=== PATIENT | female | born 1955 | race Caucasian/White ===

== ENCOUNTER → 2016-11-20 | Outpatient (CLI) | payer OTHER ==
[2016-11-20 14:15] VITALS: BP 127/68; PULSE 60; TEMP 97.9
--- NOTE | 2016-11-20 14:39 | P.HPBAR ---
Bariatric H&P - History & Physicial H&P Date: 11/20/16 History & Physicial: Visit/CC: Patient initial contact: Initial weight: 87.203 kg Initial weight in pounds: 192.25 Height: 5 ft 6 in Initial BMI: Last weight: Current weight: 87.317 kg Current weight in pounds: Current BMI: [place] body weight (based on NIH guidelines): Excess body weight loss: The patient is a 61 year-old F who presents for Bariatric Assessment. Patient is hungry and wishes of her LAP-BAND adjusted. Review of Systems Constitutional: Reports as per HPI Past Medical History History of Any Multi-Drug Resistant Organisms: None Reported Past Surgical History: Bariatric Surgery, Section, Tubal Ligation Additional Past Surgical History / Comment(s): lap band, D and C, trigger finger surgery, carpal tunnel, bilateral knee surgery Past Anesthesia/Blood Transfusion Reactions: No Reported Reaction Past Psychological History: No Psychological Hx Reported Smoking Status: Unknown if ever smoked Past Alcohol Use History: None Reported Past Drug Use History: None Reported - Past Family History Mother Family Medical History: COPD Additional Family Medical History / Comment(s): from COPD Father Additional Family Medical History / Comment(s): from [place] [facility] - Exam Vital Signs Temp Pulse BP 97.9 F 60 127/68 11/20/16 14:12 11/20/16 14:12 11/20/16 14:12 - General well developed, no distress - Eyes PERRL - ENT normal pinna - Neck no masses - Respiratory normal expansion - Cardiovascular Rhythm: regular - Abdomen Abdomen: soft, non tender Bariatric Assessment & Plan Plan: Patient LAP-BAND was adjusted. 0.2 mL was added to her LAP-BAND. She will follow-up in the office in one month. Bariatric Checklist Checklist: Plan: Checklist: EGD: 1. Hiatal hernia: 2. H. Pylori: HgbA1c: Vitamin D: Smoking: Unknown if ever smoked Primary care physician referral: Psychiatry clearance: Cardiology clearance: Sleep study: Diet journal: VTE risk score: VTE risk level: Rehab needs at discharge:
== END | disposition home or self-care (01) ==
LOC: BARWHC3 13:12
PROVIDERS: ATTEND Surgery
DX: Z48.815 Encounter for surgical aftercare following surgery on the digestive system (principal); Z98.84 Bariatric surgery status
CPT/HCPCS: 99212

== ENCOUNTER → 2017-01-01 | Outpatient (CLI) | payer OTHER ==
[2017-01-01 13:50] VITALS: BP 132/75; PULSE 69; RESP 16; TEMP 97.8; BMI 29.7
--- NOTE | 2017-01-01 14:19 | P.HPBAR ---
Bariatric H&P - History & Physicial H&P Date: 01/01/17 History & Physicial: Visit/CC: fill Patient initial contact: Initial weight: 87.203 kg Initial weight in pounds: 192.25 Height: 5 ft 7 in Initial BMI: 30.1 Last weight: Current weight: 86.296 kg Current weight in pounds: 190.00 Current BMI: 29.7 [place] body weight (based on NIH guidelines): 61.235 kg Excess body weight loss: 3.9% The patient is a 61 year-old F who presents for Bariatric Assessment. The patient is requesting a fill. She currently feels hungry. Past Medical History History of Any Multi-Drug Resistant Organisms: None Reported Past Surgical History: Bariatric Surgery, Section, Tubal Ligation Additional Past Surgical History / Comment(s): lap band, D and C, trigger finger surgery, carpal tunnel, bilateral knee surgery Past Anesthesia/Blood Transfusion Reactions: No Reported Reaction Past Psychological History: No Psychological Hx Reported Smoking Status: Unknown if ever smoked Past Alcohol Use History: None Reported Past Drug Use History: None Reported - Past Family History Mother Family Medical History: COPD Additional Family Medical History / Comment(s): from COPD Father Additional Family Medical History / Comment(s): from [place] [facility] - Exam Vital Signs Temp Pulse Resp BP 97.8 F 69 16 132/75 01/01/17 13:47 01/01/17 13:47 01/01/17 13:47 01/01/17 13:47 - General well developed - Abdomen Abdomen: soft, non tender Bariatric Assessment & Plan Plan: The patient LAP-BAND was adjusted. 0.5 mL was added to her band. She currently has 5 mL in the band. She will follow-up in 2 months. Bariatric Checklist Checklist: Plan: Checklist: EGD: 1. Hiatal hernia: 2. H. Pylori: HgbA1c: Vitamin D: Smoking: Unknown if ever smoked Primary care physician referral: Psychiatry clearance: Cardiology clearance: Sleep study: Diet journal: VTE risk score: VTE risk level: Rehab needs at discharge:
== END ==
LOC: BARWHC3 13:10
PROVIDERS: ATTEND Surgery
DX: Z48.815 Encounter for surgical aftercare following surgery on the digestive system (principal); Z98.84 Bariatric surgery status
CPT/HCPCS: 99212

== ENCOUNTER → 2017-02-05 | Outpatient (CLI) | payer OTHER ==
[2017-02-05 14:15] VITALS: BP 121/76; PULSE 64; RESP 16; TEMP 97.6; BMI 28.0
--- NOTE | 2017-02-05 16:15 | P.HPBAR ---
Bariatric H&P - History & Physicial H&P Date: 02/05/17 History & Physicial: Visit/CC: Band Adj Patient initial contact: Initial weight: 87.203 kg Initial weight in pounds: 192.25 Height: 5 ft 7 in Initial BMI: 30.1 Last weight: Current weight: 81.42 kg Current weight in pounds: 179.00 Current BMI: 28.0 [place] body weight (based on NIH guidelines): 61.235 kg Excess body weight loss: 23.1% The patient is a 61 year-old F who presents for Bariatric Assessment. The patient has complaints of mild dysphagia. She is requesting of fluid removed from her band. Past Medical History History of Any Multi-Drug Resistant Organisms: None Reported Past Surgical History: Bariatric Surgery, Section, Tubal Ligation Additional Past Surgical History / Comment(s): lap band, D and C, trigger finger surgery, carpal tunnel, bilateral knee surgery Past Anesthesia/Blood Transfusion Reactions: No Reported Reaction Past Psychological History: No Psychological Hx Reported Smoking Status: Unknown if ever smoked Past Alcohol Use History: None Reported Past Drug Use History: None Reported - Past Family History Mother Family Medical History: COPD Additional Family Medical History / Comment(s): from COPD Father Additional Family Medical History / Comment(s): from [place] Surgical - Exam Vital Signs Temp Pulse Resp BP 97.6 F 64 16 121/76 02/05/17 14:13 02/05/17 14:13 02/05/17 14:13 02/05/17 14:13 - General well developed, no distress - Eyes PERRL - Respiratory normal expansion - Cardiovascular Rhythm: regular - Abdomen Abdomen: soft, non tender Bariatric Assessment & Plan Plan: Patient's lap band was adjusted. 0.3 mL was removed for band. She presents for 0.7 mL in the band. She will follow-up in one month Bariatric Checklist Checklist: Plan: Checklist: EGD: 1. Hiatal hernia: 2. H. Pylori: HgbA1c: Vitamin D: Smoking: Unknown if ever smoked Primary care physician referral: Psychiatry clearance: Cardiology clearance: Sleep study: Diet journal: VTE risk score: VTE risk level: Rehab needs at discharge:
== END ==
LOC: BARWHC3 13:48
PROVIDERS: ATTEND Surgery
DX: Z48.815 Encounter for surgical aftercare following surgery on the digestive system (principal); Z98.84 Bariatric surgery status
CPT/HCPCS: 99212